=== PATIENT | female | born 1940 | race Caucasian/White ===

== ENCOUNTER → 2017-06-01 | Outpatient (CLI) | payer OTHER ==
[~2017-06-01] MED LIST: ACETAMINOPHEN325 M1 PO; ASPIRIN EC81 M1 PO; ATENOLOL 25 MG25 M1 PO; ATENOLOL 50MG T50 M1 PO; CALCIUM 600 +1 EAC1 PO; CELEXA 20 MG TA20 MG PO; COLACE100 MG PO; FISH OIL 1,0001 EAC5 PO; HYDROCHLOROTHIA25 M1 PO; HYDROCODON-ACE1 EAC8 PO; LIPITOR10 MG PO; LOVASTAT20 PO; METOPROLOL TART25 M1 PO; MULTIVITAMINS PO; NIACIN 500 MG500 M1 PO; NORCO 5-325 TA1 EACH PO; PAXIL20 MG PO; TOPROL XL25 MG PO; [UNRECOGNIZED DRUG - OTHER]
== END ==
LOC: RAD 01:42
DX: Z12.31 Encounter for screening mammogram for malignant neoplasm of breast (principal)

== ENCOUNTER → 2018-07-12 | Outpatient (CLI) | payer OTHER | LOC: RAD 12:50 | DX: Z12.31 Encounter for screening mammogram for malignant neoplasm of breast (principal) ==

== ENCOUNTER → 2018-07-20 | Outpatient (CLI) | payer OTHER | LOC: BC 07-18 01:07 | DX: N60.41 Mammary duct ectasia of right breast (principal); R92.2 Inconclusive mammogram ==

== ENCOUNTER → 2019-06-14 | Outpatient (CLI) | payer OTHER | LOC: RAD 13:03 | DX: Z12.31 Encounter for screening mammogram for malignant neoplasm of breast (principal) ==

== ENCOUNTER → 2020-06-23 | Outpatient (CLI) | payer OTHER | LOC: BC 09:39 | DX: Z12.39 Encounter for other screening for malignant neoplasm of breast (principal); R92.2 Inconclusive mammogram ==